=== PATIENT | female | born 1955 | race Caucasian/White ===

== ENCOUNTER → 2017-01-08 | Outpatient (CLI) | payer OTHER ==
[~2017-01-08] MED LIST: ACID REDUCER150 MG PO; ALBUTEROL MININEB NEB; AMLODIPINE BESYL5 MG PO; B-1100 MG PO; COZAAR PO; FLEXERIL10 MG PO; IBUPROFEN800 MG PO; MONTELUKAST SOD10 MG PO; ROSUVASTATIN CA20 MG PO; VITAMIN D250000 UNIT PO; VITAMIN D350000 UNIT PO
--- NOTE | ~2017-01-08 | CT52 ---
[facility] A Service of [facility] RADIOLOGY TEXT RESULTS PATIENT: ALVARO RICHARDS LOCATION: [facility] : 59 UNIT #: [id number] AGE: [address]: Adriana Evans MD SEX: F ORDER DR: [id number] [facility] [place]. [place], [place] [address] [id number] O MR#: [id number] Acc #: [id number] NAME: ALVARO RICHARDS : 1955 SEX: F STUDY DATE/TIME: 01/08/2017 14:29 UNIT: [facility] ROOM: STUDY DESCRIPTION: CT Cervical Spine Wo Cont Attending Physician: Adriana Evans M.D. Referring Physician: Adriana Evans M.D. Ordering Physician: Adriana Evans M.D. Primary Care Physician: Adriana Evans M.D. MEDICAL IMAGING REPORT This report is preliminary unless electronic signature is present EXAM Cervical spine CT no contrast date of study is 01/08/2017 HISTORY Neck pain for 2 years. No known injury. PROCEDURE Axial cervical spine CT without contrast with multiplanar reformats. TECHNIQUE This CT exam was performed with one or more of the following radiation dose reduction techniques: automatic control, adjustment of mA and/or kV according to patient size, and iterative reconstruction. FINDINGS There is discogenic change but alignment is within normal limits. There is facet arthropathy as well, most prominently on the right at C2-3. There is no fracture or bone erosion or destruction. The adjacent soft tissues are unremarkable. At 2-3, the canal and left foramen are normal and there is mild to moderate right foraminal narrowing. At 3-4, there is no canal stenosis and minimal bilateral foraminal narrowing. At 4-5, there is no canal stenosis and minimal foraminal narrowing. At 5-6, there is no canal stenosis and mild left and no right foraminal stenosis. At 6-7, there is no canal stenosis or foraminal stenosis. [facility] A Service of [facility] RADIOLOGY TEXT RESULTS PATIENT: ALVARO RICHARDS LOCATION: [facility] : 59 UNIT #: [id number] AGE: [address]: Adriana Evans MD SEX: F ORDER DR: At 7-2, the canal is normal and there is minimal foraminal narrowing. IMPRESSION Mild degenerative change without acute abnormality. Dictated by... Wild Arthur M.D. THIS IS AN ELECTRONICALLY VERIFIED REPORT Wild Arthur M.D. at 01/11/2017 4:32 PM TEV/rnr TD: 01/09/2017 01:23 JOB #: [id number] MEDICAL IMAGING REPORT COPY
== END | disposition home or self-care (01) ==
LOC: CCAT 13:49
DX: M54.2 Cervicalgia (principal); M47.812 Spondylosis without myelopathy or radiculopathy, cervical region; F17.200 Nicotine dependence, unspecified, uncomplicated
CPT/HCPCS: 72125

== ENCOUNTER → 2017-03-29 | Outpatient (CLI) | payer OTHER ==
--- NOTE | ~2017-03-29 | CT138 ---
[facility] A Service of [facility] RADIOLOGY TEXT RESULTS PATIENT: ALVARO RICHARDS LOCATION: [facility] : 59 UNIT #: [id number] AGE: [address]: Adriana Evans MD SEX: F ORDER DR: [id number] [address] [address] [id number] O MR#: [id number] Acc #: [id number] NAME: ALVARO RICHARDS : 1955 SEX: F STUDY DATE/TIME: 03/29/2017 9:06 UNIT: [facility] ROOM: STUDY DESCRIPTION: CT Lung screening initial Attending Physician: Adriana Evans M.D. Referring Physician: Adriana Evans M.D. Ordering Physician: Adriana Evans M.D. Primary Care Physician: Adriana Evans M.D. MEDICAL IMAGING REPORT This report is preliminary unless electronic signature is present EXAM CT of the chest without contrast. Lung cancer screening. INDICATIONS 39 pack-year total smoking history. Current smoker. TECHNIQUE CT of the chest performed without contrast using the low-dose lung cancer screening protocol. Coronal and sagittal reformatted images were obtained. CT dose index 2.[address] exam was performed with one or more of the following radiation dose reduction techniques: automatic exposure control, adjustment of mA and/or kV according to patient size, and iterative reconstruction. No comparisons FINDINGS Emphysema. Right middle lobe micronodule on image 95. No airspace consolidation. No suspicious lymphadenopathy. No pleural effusion. Limited imaging of the upper abdomen demonstrates cholelithiasis. The bone windows unremarkable. IMPRESSION 1. Tiny micronodule in the right middle lobe. ACR Lung-RADS category II followup annual low-dose lung cancer screening chest CT in 1 year. 2. Incidental cholelithiasis. Dictated by... Andrey Linares M.D. [facility] A Service of [facility] RADIOLOGY TEXT RESULTS PATIENT: ALVARO RICHARDS LOCATION: [facility] : 59 UNIT #: [id number] AGE: [address]: Adriana Evans MD SEX: F ORDER DR: THIS IS AN ELECTRONICALLY VERIFIED REPORT Andrey Linares M.D. at 03/30/2017 7:44 AM Brandie TD: 03/29/2017 09:28 JOB #: [id number] MEDICAL IMAGING REPORT Page 1 of 1 COPY
== END | disposition home or self-care (01) ==
LOC: CCAT 08:50
DX: F17.210 Nicotine dependence, cigarettes, uncomplicated (principal); R91.1 Solitary pulmonary nodule
CPT/HCPCS: G0297

== ENCOUNTER → 2017-05-14 | Outpatient (CLI) | payer OTHER ==
--- NOTE | ~2017-05-14 | EKG ---
PATIENT: ALVARO RICHARDS UNIT #: [id number] Ventricular Rate: 83 BPM Atrial Rate: 83 BPM P-R Interval: 152 ms QRS Duration: 80 ms Q-T Interval: 352 ms QTC Calculation(Bezet): 413 ms P [place]: 74 degrees Calculated R [place]: 49 degrees Calculated T [place]: 70 degrees Diagnosis Line: Normal sinus rhythm Diagnosis Line: Normal ECG Diagnosis Line: No previous ECGs available Diagnosis Line: Confirmed by BRYNN MIRAMONTES MD ([id number]) on Diagnosis Line: 05/14/2017 5:28:58 PM INTERPRETING MD: KULWINDER CLARKE
[2017-05-14 16:28] LABS: ALBUMIN SERUM 4.2 g/dL (3.5-5.0); BILIRUBIN,TOTAL 0.4 mg/dL (0.2-2.0); CALCIUM SERUM 9.3 mg/dL (8.4-10.2); GLOM FILT RATE Estimated 61.6 mL/min (>60); POTASSIUM 3.6 mmol/L (3.5-5.1); PROTEIN TOTAL SERUM 7.3 g/dL (6.0-8.3)
== END | disposition home or self-care (01) ==
LOC: CAMB 05-13 12:00
PROVIDERS: Surgery
DX: Z01.818 Encounter for other preprocedural examination (principal)
CPT/HCPCS: 36415; 80053; 93005

== ENCOUNTER → 2017-05-20 | Day surgery (SDC) | payer OTHER ==
--- NOTE | ~2017-05-20 | OR ---
Unit #: [id number] #: [id number] Patient: ALVARO RICHARDS [id number] [address] [id number] O MR#: [id number] NAME: ALVARO RICHARDS ROOM: Date of Procedure: 05/20/2017 Admission Date: 05/20/2017 Surgeon: Daniele Mcbride Jr., M.D. : 1955 Attending Physician: Daniele Mcbride Jr., M.D. Referring Physician: Daniele Mcbride Jr., M.D. Primary Care Physician: Adriana Evans M.D. OPERATIVE REPORT INDICATIONS FOR PROCEDURE The patient is a 61-year-old white female, recently was worked up, and CT revealed evidence of gallstones. She has had some intermittent chest pains and probably biliary colic along with these. She is brought in at this time for laparoscopic cholecystectomy at her request. She understands the procedure including the risks, including that of common duct injury, biliary leak, and bleeding, and intra-abdominal organ injury, and consents. PREOPERATIVE DIAGNOSES Chronic cholecystitis with cholelithiasis. POSTOPERATIVE DIAGNOSES Chronic cholecystitis with cholelithiasis. Also noting a bandlike adhesion in the right lateral abdominal wall area. There were also some other intra-abdominal adhesions from previous surgery. ANESTHESIA General with endotracheal intubation 0.5% Marcaine with epinephrine locally. PROCEDURES PERFORMED Laparoscopic lysis of adhesion requiring 10 minutes with laparoscopic cholecystectomy. DESCRIPTION OF PROCEDURE The patient was positioned in supine position. After being anesthetized and intubated, was prepped and draped in routine fashion for laparoscopic cholecystectomy. A small 0.5 cm incision was made in the right lateral abdominal wall area and a 5-mm Optiview introduced in the abdomen followed by the camera. There was no evidence of any injury related to introduction of the camera over the Optiview and brief intra-abdominal exploration was carried out. The patient was noted to have multiple adhesions from her previous surgery. There was a free area near the umbilicus inferior to it. 0.5 cm incision was made in this area and a 5-mm port was introduced intra-abdominally and the camera switched to this port. There was a bandlike adhesion in the right lateral abdominal wall area. Additional 5-mm port was placed and 11-mm port just to the right of the upper midline and using a hemoclipper, the bandlike adhesion was hemoclipped and divided. At this point, the gallbladder was lifted. Dissection was carried out in the triangle of Calot. Cystic duct was isolated only 1 to 2 mm in diameter, was hemoclipped x4, and divided. Unit #: [id number] #: [id number] Patient: ALVARO RICHARDS This was approximately 1 cm from its junction with the common duct. The common duct appeared normal. Cystic artery was identified, hemoclipped x3, and divided. The gallbladder was then removed from its bed with the hook cautery using a current of 20 and after it was released, it was removed through the upper midline incision along with the grasping clamp and the port. The port was placed and subhepatic space checked. There was no evidence of any bleeding from the gallbladder bed. The clips on cystic duct and cystic artery were intact with no evidence of any leak or bleeding. Using the neoClose technique, the fascia in the larger port site was approximated and the ports removed. CO2 was expressed from the abdomen. The ports sites were injected with 0.5% Marcaine with epinephrine locally. The wounds were irrigated. After hemostasis achieved with Bovie cautery, skin edges were approximated with stainless-steel skin clips and skin stapling device. Sterile dressings were applied externally. Estimated blood loss was less than 35 mL. The patient received less than 1000 mL crystalloid solution during the procedure. Sponges and instruments counts were correct x3. No drains used. No complications. The patient was taken to the recovery room with stable vital signs in satisfactory condition. Dictated by... Daniele Mcbride Jr., M.D. JMB/emanuel TD: 05/21/2017 05:27 JOB #: [id number] OPERATIVE REPORT Page 1 of 1 X Daniele Mcbride MD X PROCEDURE OPERATIVE NOTE
== END | disposition home or self-care (01) ==
LOC: CSUR 08:18
DX: K80.10 Calculus of gallbladder with chronic cholecystitis without obstruction (principal); K66.0 Peritoneal adhesions (postprocedural) (postinfection); K21.9 Gastro-esophageal reflux disease without esophagitis; J44.9 Chronic obstructive pulmonary disease, unspecified; I10 Essential (primary) hypertension; E78.5 Hyperlipidemia, unspecified; F17.200 Nicotine dependence, unspecified, uncomplicated
CPT/HCPCS: 88304; J0330; J0690; J1100; J1170; J1644; J2250; J2405; J2710; J3010